=== PATIENT | female | born 1985 | race Caucasian/White ===

== ENCOUNTER → 2019-07-10 14:50 | Outpatient (BNVA) | payer OTHER, SELFPAY | PROVIDERS: Family Provider Physician Assistant Medical; PCP Physician Assistant Medical; Visit Provider Nurse Practitioner Women's Health | DX: O09.292 Supervision of pregnancy with other poor reproductive or obstetric history, second trimester (principal); O16.2 Unspecified maternal hypertension, second trimester; R00.0 Tachycardia, unspecified; O34.211 Maternal care for low transverse scar from previous cesarean delivery; O09.891 Supervision of other high risk pregnancies, first trimester; Z14.1 Cystic fibrosis carrier | CPT/HCPCS: 82950; 84156; 84315 ==

== ENCOUNTER → 2019-07-16 11:38 | Outpatient (BNVA) | payer OTHER, SELFPAY | PROVIDERS: Family Provider Physician Assistant Medical; PCP Physician Assistant Medical; Visit Provider Obstetrics & Gynecology | DX: O99.810 Abnormal glucose complicating pregnancy (principal) | CPT/HCPCS: 82951; 82952 ==

== ENCOUNTER → 2019-07-30 09:54 | Outpatient (BNVA) | payer OTHER, SELFPAY | PROVIDERS: Family Provider Physician Assistant Medical; PCP Physician Assistant Medical; Visit Provider Obstetrics & Gynecology | DX: O16.2 Unspecified maternal hypertension, second trimester (principal); O09.892 Supervision of other high risk pregnancies, second trimester; O34.211 Maternal care for low transverse scar from previous cesarean delivery; Z3A.20 20 weeks gestation of pregnancy | CPT/HCPCS: 76805 ==

== ENCOUNTER → 2019-08-01 09:11 | Outpatient (BNVA) | payer OTHER, SELFPAY | PROVIDERS: Family Provider Physician Assistant Medical; PCP Physician Assistant Medical; Visit Provider Obstetrics & Gynecology | DX: Z01.89 Encounter for other specified special examinations (principal) | CPT/HCPCS: 84315 ==

== ENCOUNTER → 2019-08-27 09:18 | Outpatient (BNVA) | payer OTHER, SELFPAY | PROVIDERS: Family Provider Physician Assistant Medical; PCP Physician Assistant Medical; Visit Provider Obstetrics & Gynecology | DX: Z01.89 Encounter for other specified special examinations (principal) | CPT/HCPCS: 84315 ==

== ENCOUNTER → 2019-09-26 11:00 | Outpatient (BNVA) | payer OTHER, SELFPAY | PROVIDERS: Family Provider Physician Assistant Medical; PCP Physician Assistant Medical; Visit Provider Obstetrics & Gynecology | DX: O09.892 Supervision of other high risk pregnancies, second trimester (principal); Z34.90 Encounter for supervision of normal pregnancy, unspecified, unspecified trimester; O09.292 Supervision of pregnancy with other poor reproductive or obstetric history, second trimester; O34.211 Maternal care for low transverse scar from previous cesarean delivery; Z30.09 Encounter for other general counseling and advice on contraception; Z14.1 Cystic fibrosis carrier; O09.891 Supervision of other high risk pregnancies, first trimester | CPT/HCPCS: 82950; 84315; 85027; 86850 ==

== ENCOUNTER → 2019-10-01 09:55 | Outpatient (BNVA) | payer OTHER, SELFPAY | PROVIDERS: Family Provider Physician Assistant Medical; PCP Physician Assistant Medical; Visit Provider Obstetrics & Gynecology | DX: O99.810 Abnormal glucose complicating pregnancy (principal) | CPT/HCPCS: 82951; 82952 ==

== ENCOUNTER → 2019-10-07 09:26 | Outpatient (BNVA) | payer OTHER, SELFPAY | PROVIDERS: Family Provider Physician Assistant Medical; PCP Physician Assistant Medical; Visit Provider Obstetrics & Gynecology | DX: Z01.89 Encounter for other specified special examinations (principal) | CPT/HCPCS: 84315 ==

== ENCOUNTER → 2019-10-14 10:48 | Outpatient (BNVA) | payer OTHER, SELFPAY | PROVIDERS: Family Provider Physician Assistant Medical; PCP Physician Assistant Medical; Visit Provider Obstetrics & Gynecology | DX: O34.219 Maternal care for unspecified type scar from previous cesarean delivery (principal); O09.893 Supervision of other high risk pregnancies, third trimester; Z14.1 Cystic fibrosis carrier; Z3A.31 31 weeks gestation of pregnancy; O09.892 Supervision of other high risk pregnancies, second trimester; O34.211 Maternal care for low transverse scar from previous cesarean delivery; Z30.09 Encounter for other general counseling and advice on contraception; O99.013 Anemia complicating pregnancy, third trimester | CPT/HCPCS: 84315 ==

== ENCOUNTER → 2019-11-08 10:58 | Outpatient (BNVA) | payer OTHER, SELFPAY | PROVIDERS: Family Provider Physician Assistant Medical; PCP Physician Assistant Medical; Visit Provider Obstetrics & Gynecology | DX: O09.892 Supervision of other high risk pregnancies, second trimester (principal); O24.419 Gestational diabetes mellitus in pregnancy, unspecified control | CPT/HCPCS: 76816; 76819; 84315 ==

== ENCOUNTER → 2019-11-14 08:37 | Outpatient (BNVA) | payer OTHER, SELFPAY | PROVIDERS: Family Provider Physician Assistant Medical; PCP Physician Assistant Medical; Visit Provider Obstetrics & Gynecology | DX: O09.893 Supervision of other high risk pregnancies, third trimester (principal); O24.414 Gestational diabetes mellitus in pregnancy, insulin controlled; O99.013 Anemia complicating pregnancy, third trimester; Z3A.00 Weeks of gestation of pregnancy not specified | CPT/HCPCS: 84315; 85027 ==

== ENCOUNTER → 2019-11-21 14:59 | Outpatient (BNVA) | payer OTHER, SELFPAY | PROVIDERS: Family Provider Physician Assistant Medical; PCP Physician Assistant Medical; Visit Provider Obstetrics & Gynecology | DX: O09.893 Supervision of other high risk pregnancies, third trimester (principal); O24.414 Gestational diabetes mellitus in pregnancy, insulin controlled; Z3A.00 Weeks of gestation of pregnancy not specified | CPT/HCPCS: 84315; 87081 ==

== ENCOUNTER 2019-11-26 10:41 | Outpatient (CLI) | payer OTHER, SELFPAY ==
[2019-11-26 11:30] VITALS: BMI 35.5
[2019-11-26 11:45] VITALS: BP 118/68; PULSE 85; RESP 16; TEMP 36.6
--- NOTE | 2019-11-26 11:55 | US_ITS ---
WS: [id number] US OB BPP wo NST 69294 REASON FOR EXAM: Gestational Diabetes FINDINGS: Cephalic presentation Biophysical profile 01/31. US/US OB BPP wo NST 00218 IMPRESSION: Normal biophysical profile.
--- NOTE | 2019-11-26 12:55 | PM.ACPR ---
Procedure/Consent Procedure Narrative: NONSTRESS TEST: Place of test: [facility] [place]-L&D Indication: 34-year-old 6 para 2-0-3-2 at 37 weeks and 2 days, gestational diabetic on insulin, monitoring Date and time of test: 11/26/2019-12:10 PM Baseline: 130 Variability: Moderate variability Accelerations: Accelerations present Decelerations: No decelerations Tocometry: No contractions INTERPRETATION: NST reactive, BPP 8 out of 8, reassuring status. Continue kick counts
[2019-11-26 12:56] VITALS: BP 130/70; PULSE 86; RESP 16; TEMP 36.6
[2019-11-26 13:00] VITALS: BP 130/70; PULSE 86; RESP 16; TEMP 36.6
== END 2019-11-26 13:00 | disposition home or self-care (01) ==
LOC: RAD 10:55 → OPOB 11:47 → OBGYN 11:48
PROVIDERS: PCP Physician Assistant Medical; Visit Provider Obstetrics & Gynecology
DX: O26.899 Other specified pregnancy related conditions, unspecified trimester (principal); Z3A.00 Weeks of gestation of pregnancy not specified
CPT/HCPCS: 12345; 59025; 76819

== ENCOUNTER 2019-11-28 08:56 | Outpatient (CLI) | payer OTHER, SELFPAY ==
[2019-11-28 09:10] VITALS: BP 137/85; PULSE 122; RESP 17; TEMP 36.7
--- NOTE | 2019-11-28 09:10 | US_ITS ---
WS: [id number] US OB BPP wo NST 70038 REASON FOR EXAM: gestational diabetes FINDINGS: Cervix measured 4.24 cm and was closed. Cephalic presentation heart rate 124 beats for minute Biophysical profile 88 with normal breathing, movement, tone, and amniotic fluid. The fetus is at 37 weeks 4 days gestation with expected date of confinement of 12/15/2019. The placenta is graded as grade 2. US/US OB BPP wo NST 66648 IMPRESSION: Biophysical profile 8/8 37 weeks 4 days gestation due date December 15, 2019
[2019-11-28 09:31] VITALS: BP 121/63; PULSE 96
[2019-11-28 09:43] VITALS: BMI 35.5
[2019-11-28 12:15] VITALS: BP 121/63; PULSE 96
--- NOTE | 2019-11-28 17:11 | PM.ACPR ---
NST (Non-Stress Test) NST : 6 Para: 2,032 Due date: 12/15/19 Gestational age (weeks): 37 Indications: Insulin requiring gestational diabetes in third trimester at 37-4/7 weeks Test: NST Time: 09:10 Length of test in Minutes: 29 Contractions: None Fetus Fetus 1: Baseline FHR BMP:: 135 Variability: Moderate Accelerations: Present Decelerations: None Reacticity: Reactive Interpretation/Plan Interpretation by: Robert Dumont Comments: Reactive NST. Biophysical profile pending.
== END 2019-11-28 12:15 | disposition home or self-care (01) ==
LOC: OPOB 09:04 → OBGYN 09:05
PROVIDERS: PCP Physician Assistant Medical; Visit Provider Obstetrics & Gynecology
DX: O24.419 Gestational diabetes mellitus in pregnancy, unspecified control (principal); Z3A.00 Weeks of gestation of pregnancy not specified
CPT/HCPCS: 12345; 59025; 76819; 84315; 99211

== ENCOUNTER 2019-12-10 05:02 | Inpatient (IN) | payer OTHER, SELFPAY ==
[2019-12-10] VITALS (22 sets, daily range): BP systolic 110–135; BP diastolic 67–88; PULSE 64–101; RESP 12–18; TEMP 36.4–36.9; O2SAT 94–100; BMI 35.7
--- NOTE | 2019-12-10 06:43 | W.PM.OPSUD ---
Surgery/Procedure H&P Update DATE OF PROCEDURE: December 10, 2019 DATE H&P PERFORMED: 12/06/19 H&P UPDATE INFORMATION: I have reviewed H&P completed within last 30 days, I have examined patient prior to procedure, Changes to prior documentation as noted here and H&[place] is in [facility] [place] date indicated CHANGES TO PREVIOUS DOCUMENTATION: Patient has decided not to have the sterilization. PREOP DIAGNOSIS: Prior section - declines PLANNED PROCEDURE: Operation Date: 12/10/19 07:00 Proposed Procedures p Section Repeat With Tubal 33282 04168 Z34.90 Z98.891 Z30.2(Not Applicable) - Robert Dumont MD
[2019-12-10] MEDS: famotidine 20 mg/2 mL INJ IVP (06:45)
[2019-12-10] MEDS: metoclopramide 5 mg/mL SDV 2 mL 10 MG IVP (06:45)
[2019-12-10] MEDS: citric acid-sodium citrate 30 mL UDC PO (06:45)
[2019-12-10] MEDS: lactated ringers 1,000 ML 999 ML IV (06:54)
--- NOTE | 2019-12-10 06:58 | P.ANESASSM_ITS ---
Pre-Anesthetic Assessment Pre-Anesthetic Assessment: Height/Weight: Height 1.52 m Weight 83.007 kg Temp Pulse BP 98.3 F 101 H 135/88 12/10/19 05:59 12/10/19 05:27 12/10/19 05:27 Preop Diagnosis: Prior section - declines Proposed Procedure: Operation Date: 12/10/19 07:00 Proposed Procedures p Section Repeat With Tubal 79342 31205 Z34.90 Z98.891 Z30.2(Not Applicable) - Robert Dumont MD Familial anesthetic complications: none Was Beta Nayla taken within 24 hours: N/A Last intake: Intake Last Liquid Date 12/10/19 Last Liquid Time 00:00 Last Solid Date 12/10/19 Last Solid Time 00:00 Last Intake: 22:00 Social: Social History: No alcohol and No tobacco Exam: Pre-Anes Outpt Exam: alert, oriented x 3, clear to auscultation bilaterally and regular rate & rhythm Airway: Submandibular: WNL Cervical ROM: WNL MP: 1 Dentition: Full Pulmonary: Pulmonary: None reported CV/HEM: CV/HEM: Arrythmia (flutter') : : None reported Hepatic: Hepatic: None reported GI: GI: GERD Metabolic: Metabolic: DM (with avg 130-160) Musc/skel: Musc/skel: None reported Neuropsych: Neuropsych: None reported Anesthetic Plan: ASA status: 2 Anesthesia: Anesthesia Evaluation, Eval. 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 No prior evaluation. Sometimes symptomatic with it. Can last up to an hour. No prior medication treatment. Surgical History History of dilation and curettage (07/15/10) D&C with suction for treatment of miscarriage. Performed by Dr. Dumont at [facility] Previous section (05/27/11) Primary LTCS. Diagnosis: CPD with a large fetus. Performed by Dr. Yoder and Dr. Dumont at [facility] in [place], [place]. Confirmed LTCS with 2 layer closure. Previous section (10/25/13) Repeat LTCS. Performed by Dr. Dumont at [facility] in [place], [place]. Confirmed LTCS with 2 layer closure. Family History Family/Other Ovarian cancer maternal great aunt Patient denies medical problems Denies family history of: hypertension, stroke, hypercholesterolemia, thryoid problems, breast cancer, uterine cancer,or colon cancer. Grandfather Diabetes maternal Heart disease maternal Social History Smoking and tobacco status: never smoked Alcohol intake: former Former alcohol use details: Socially--has stop since finding out she was Other details last substance use: No substance abuse Additional social history: Well balanced diet Female Reproductive History: : 6 Data Anesthesia Cardiac Studies: No Data to Display
[2019-12-10 07:09] LABS: Glucose Point of Care 94 mg/dL (70-110)
[2019-12-10 07:15] LABS: Basophils % 0.4 %; Eosinophils # 0.1 10^3/uL (0.0-0.8); Eosinophils % 1.3 %; Hematocrit 34.4 % (37.0-47.0); Hemoglobin 11.6 g/dL (11.5-15.3); Lymphocytes # 1.6 10^3/uL (0.8-4.8); Lymphocytes % 14.8 %; Mean Corpuscular HGB Conc 33.7 g/dL (30.0-36.0); Mean Corpuscular Volume 94.8 fL (81-99); Mean Platelet Volume 10.6 fL (7.4-10.4); Monocytes # 0.8 10^3/uL (0.2-0.9); Neutrophils # 8.2 10^3/uL (1.8-7.7); Neutrophils % 75.5 %; Nucleated Red Blood Cells % 0 %; Platelet Count 258 10^3/cmm (130-400); Red Blood Count 3.63 10^6/uL (4.1-5.3); Red Cell Distribution Width 13.8 % (12.1-15.1); White Blood Count 10.8 10^3/uL (4.0-10.0)
--- NOTE | 2019-12-10 08:45 | PC.NURSE ---
Pt transported to room 201 via bed for recovery.
--- NOTE | 2019-12-10 08:47 | PM.OP ---
Operative Report Date of procedure: December 10, 2019 Pre-op Diagnosis: 1. Previous section, declines 2. Insulin requiring gestational diabetes in third trimester 3. Rh-negative status in in third trimester 4. Term at 39-2/7 weeks gestation Post-op Diagnosis: 1. Previous section, declines 2. Insulin requiring gestational diabetes - delivered 3. Rh-negative status in - delivered 4. Term at 39-2/7 weeks gestation 5. Viable male . Procedure Done: Repeat low transverse section Surgeon: Robert Dumont Regional Geodetic Advisor: None Anesthesia: None (Spinal) Estimated blood loss (mL): 800 IV fluids (mL): 1,200 Complications: None Findings: 1. Viable male , cephalic presentation, weighing 8 lbs 6 oz (3785 g) with a length of 20 inches and Apgars of 9 at 1 minute and 10 at 5 minutes. 2. Normal-appearing uterus, tubes, and ovaries. Condition: stable Brief History: Patient is a 34-year-old white female 6, para 2-0-3-2 with an LMP of 03/10/2019 and an EDC of 12/15/2019 based on LMP and consistent with a 9-week ultrasound, which placed her at 39-2/7 weeks gestation today. Her had been complicated by 2 prior sections, insulin requiring gestational diabetes, and anemia in . Because of 2 prior sections, patient wanted to proceed with a repeat section. She had also stated during the that she might want to have her tubes tied. This is been discussed on several occasions and this morning she has decided not to have the sterilization performed. Risks of surgery were reviewed with her. Questions were answered. She is being prepared for repeat section. Procedure: Patient was taken to the operating room where spinal anesthesia was obtained. She was prepped and draped in the usual sterile fashion in a dorsal supine position with a leftward tilt. Floyd catheter and sequential compression boots had been placed prior to starting the case. A Pfannenstiel skin incision was made with a knife through the patient's prior scar and carried down to the underlying fascia with the knife. Fascia was incised in the midline with the knife and extended laterally with Ferreira scissors. Superior aspect of the fascia was grasped with Lise clamps, elevated, and sharply and bluntly dissected. The inferior aspect of the fascia was grasped with Lise clamps, elevated, and sharply and bluntly dissected. The rectus muscles were in the midline. Peritoneum was sharply entered. Peritoneal incision was extended both superiorly and inferiorly with good visualization of the bladder. Bladder blade was inserted. The vesicouterine peritoneum was tented up and sharply entered. It was extended laterally and the bladder flap was created digitally. Bladder blade was reinserted. A transverse incision was made with the knife in the lower uterine segment. Clear fluid was obtained upon entry into the uterine cavity. The infant's head was delivered and no nuchal cords were noted. The rest of the delivered atraumatically. Nose and mouth were suctioned with bulb suction. Cord was clamped and cut and the was handed off to Dr. Grey and the waiting nurses. Cord blood was obtained. Placenta was delivered via uterine massage. Patient received 20 units of Pitocin in the IV fluids. The uterus was exteriorized and cleared of clots and debris. The uterine incision was closed in a running locking fashion using 0 Vicryl suture. The incision was imbricated using 0 Vicryl suture in a horizontal mattress fashion. The incision was inspected and noted to be hemostatic. Posterior cul-de-sac was thoroughly irrigated and cleared of clots and blood. The uterus was returned to the abdomen. The uterine incision was irrigated and noted to be hemostatic. The gutters were cleared of clots and blood. The rectus muscles and peritoneum were reapproximated in the midline using interrupted stitches of 2-0 Vicryl suture. The muscle layer was irrigated and noted to be hemostatic. The fascia was reapproximated using 0 Vicryl suture in a running fashion. The subcutaneous layer was irrigated and brought to hemostasis using electrocautery. It was reapproximated using 3-0 plain suture in an interrupted fashion. Skin was reapproximated using 4-0 Vicryl suture in a subcuticular fashion. Steri-Strips were applied. Patient tolerated the procedures well. Sponge, needle, and instrument counts were correct. DRAINS: Floyd catheter POSTOPERATIVE STATUS: The patient was left to recover in satisfactory condition
[2019-12-10] MEDS: dextrose 5%-lactated ringers 1,000 ML 125 ML IV (12:11)
[2019-12-10] MEDS: ketorolac 30 mg/mL INJ IVP (14:46)
--- NOTE | 2019-12-10 18:38 | PC.NURSE ---
Urinary indwelling catheter removed on 12/10/2019 at 18:15. Balloon withdrawn amount was 9mL of sterile saline. Urine was drained before withdrawing and was equal t 250mL of clear yellow urine without odor. Withdrawn urine was also charted in the daily intake and output record. Cath intact. Patient tolerated the procedure well.......Alesha Thorpe RN
[2019-12-10 20:42] LABS: Hematocrit 31.5 % (37.0-47.0); Hemoglobin 10.6 g/dL (11.5-15.3); Mean Corpuscular HGB Conc 33.7 g/dL (30.0-36.0); Mean Corpuscular Hemoglobin 31.9 pg (28.0-34.0); Mean Corpuscular Volume 94.9 fL (81-99); Platelet Count 233 10^3/cmm (130-400); Red Blood Count 3.32 10^6/uL (4.1-5.3); Red Cell Distribution Width 13.5 % (12.1-15.1); White Blood Count 11.1 10^3/uL (4.0-10.0)
[2019-12-11 02:50] VITALS: BP 108/67; PULSE 68; RESP 17
[2019-12-11] MEDS: HYDROcodone-acetaminophen 5-325 mg Tablet PO (06:20)
[2019-12-11] MEDS: docusate sodium 100 mg Capsule PO (08:15)
[2019-12-11] MEDS: prenatal vitamin Capsule 1 CAP PO (08:15)
[2019-12-11 09:18] VITALS: BP 125/79; PULSE 86; RESP 17; TEMP 36.7
--- NOTE | 2019-12-11 14:05 | PM.DCS ---
Discharge Providers Date of Admission: 12/10/19 05:02 Date of Discharge: December 11, 2019 Attending Provider at Admission: Robert Dumont MD Attending Provider at Discharge: Robert Dumont MD Primary Care Provider: Harrison Blue Diagnoses at Discharge Discharge Diagnosis (1) Maternal care due to low transverse uterine scar from previous delivery: Status: Acute (2) Gestational diabetes mellitus, delivered: Status: Acute Reason for Visit Reason for Visit: Intrauterine ,Previous section, Hospital Course Hospital Course: Patient is a 34-year-old white female 6, para 2-0-3-2 with an LMP of 03/10/2019 and an EDC of 12/15/2019 based on LMP and consistent with a 9-week ultrasound, which placed her at 39-2/7 weeks gestation at time of admission. Her been complicated by 2 prior sections, insulin requiring gestational diabetes, and anemia in . Because of 2 prior 's, she was planning on a repeat section. She had also been discussing options of sterilization at the time of at but on the morning of surgery has decided not to have the sterilization. Risks of repeat section were reviewed with her the morning of surgery. Questions were answered. She was prepared for surgery. She had a repeat low transverse section performed with the delivery of a viable male weighing 8 pounds 6 ounces (3785 g) with a length of 20 inches and Apgars of 9 at 1 minute and 10 at 5 minutes. She received Duramorph in her spinal anesthesia for pain management after surgery. Mother and did well following surgery. POSTOPERATIVE DAY 1 That morning, patient was without complaints. She was tolerating a regular diet without nausea or vomiting. She was ambulating without lightheadedness or dizziness. She denied any shortness of breath or chest pains. Her pain was well controlled with the Duramorph. She was urinating without difficulty. She was passing flatus. Activities were increased through the day. By the late afternoon, patient was requesting to go home. She reported at that time that her pain was well controlled on the pills. She denied any complaints at that time. Physical Exam: See below Plan: Discharge to home. Discharge instructions discussed with patient. Patient to follow-up in the office at 2 and 6 weeks following surgery. Patient also instructed to have a follow-up diabetes testing approximately 6 weeks . She was instructed that she did not need to do any further sugar checks at home and to stop her insulin. Physical Exam Const: COMMON NORMALS: no acute distress, average body habitus, alert and well nourished GENERAL APPEARANCE: well developed ORIENTATION/CONSCIOUSNESS: Yes oriented to person, Yes oriented to place and Yes oriented to time Resp: COMMON NORMALS: normal respiratory effort and clear to auscultation bilaterally AUSCULTATION: clear to auscultation bilaterally Cardio: COMMON NORMALS: regular rate, regular rhythm, No gallops present (Cardio), No murmurs present (Cardio) and No rub (Cardio) RATE: regular rate RHYTHM: regular rhythm GI: COMMON NORMALS: Soft to palpation, No hepatosplenomegaly present and no masses (except for firm uterus below umbilicus) AUSCULTATION: Yes normoactive bowel sounds PALPATION: Yes Soft to palpation, Yes Tenderness to palpation present (GI) (lower abdomen), Yes No hepatosplenomegaly present and No Hernia present : EXTERNAL FEMALE EXAM: No Hernia present Extremity: COMMON NORMALS: no calf tenderness GENERAL: Yes edema (trace to 1+ lower extremity edema) Neuro: SENSORIUM/ORIENTATION: Yes alert, Yes oriented to person, Yes oriented to place and Yes oriented to time Psych: COMMON NORMALS: normal affect MOOD & AFFECT: Yes euthymic mood Urinary Catheter Management^: Floyd: Cath Placed During This Visit: yes Reason for Continuing Indwelling Catheter: Perioperative Use in Selected Surgeries Urinary Catheter Date of Insertion: 12/10/19 Urinary Catheter Time of Insertion: 07:30 Discharge Data Data Completed and Pending: Labs from last 24 hours 12/10/19 12/10/19 12/10/19 20:28 20:28 05:40 WBC 11.1 H RBC 3.32 L Hgb 10.6 L Hct 31.5 L MCV 94.9 MCH 31.9 MCHC 33.7 RDW 13.5 Plt Count 233 MPV 10.0 Blood Type A Negative Rho(D) Type Negative Antibody Screen Positive Antibody Identific ation Anti-D Screen Negative Vitals: Last Vital Signs Temp 98.1 F 12/11/19 09:18 Pulse 86 12/11/19 09:18 Resp 17 12/11/19 09:18 BP 125/79 12/11/19 09:18 Pulse Ox 94 12/10/19 21:59 Discharge Plan Discharge Patient Disposition: Home, Self-Care Condition: Stable Prescriptions: New hydrocodone-acetaminophen 5-325 mg Tablet 1 - 2 tab PO Q6H PRN (Reason: Moderate To Severe Pain) Qty: 30 RF: 0 Continued prenat.vits,ha,euo-diiw-tsopc Tablet 1 tab PO DAILY RF: 0 Zyrtec 10 mg capsule 10 mg PO DAILY RF: 0 magnesium oxide 400 mg PO DAILY RF: 0 Discontinued ferrous sulfate 140 mg (45 mg iron) tablet extended release 130 mg PO DAILY RF: 0 Humulin N NPH Insulin KwikPen 100 unit/mL (3 mL) insulin pen See Rx Instructions SUBCUT .COMPLEX Qty: 3 RF: 0 Discharge Orders: Discharge Order (Routine); Ordered 12/11/19 Ordered By: Robert Dumont Referrals: Robert Dumont MD [Physician] - 12/26/19 8:45 am (* Your 2 week incision check appointment is on 12/26/2019 at 8:45am. * Your 6 week follow up appointment is on 01/24/2020 at 7:45 am with 2 hour fasting diabetes test) Discharge Diet: Regular Discharge Activity: Limit activity as instructed Patient Instructions: Hydrocodone/Acetaminophen (By mouth), OB WH[facility], OB Discharge Report, OB Food/Drug Interaction Guide, OB Home Care, OB Proud Parent Packet Activity Restrictions/Additional Instructions: Use tuaf-xxx-hftnioc ibuprofen 200 mg, 3 tablets four times a day or 4 tablets three times a day, as needed for pain Discharge Date/Time: 12/11/19 14:40 Discharge Attestations Time Spent in Discharge Care*: less than 30 min Quality Metrics Clinical Quality Measures During this hospital stay, did patient experience: None Coding Level of Care Code Acute Biomedical Engineering Director for Chg Fwd Exam Detailed Diagnoses Maternal care due to low transverse uterine scar from previous delivery O34.211 Gestational diabetes mellitus, delivered O24.429
[2019-12-11 14:10] VITALS: BP 123/81; PULSE 92; RESP 17
[2019-12-11 14:15] VITALS: BP 123/81; PULSE 92; RESP 17
== END 2019-12-11 14:40 | disposition home or self-care (01) | DRG 788 ==
PROVIDERS: Admitting Provider Obstetrics & Gynecology; PCP Physician Assistant Medical; Visit Provider Obstetrics & Gynecology
PROC: 10D00Z1 Extraction of Products of Conception, Low, Open Approach (ICD-10-PCS; CPT 59514; principal; 2019-12-10 07:00)
DX: O24.424 Gestational diabetes mellitus in childbirth, insulin controlled (principal); O34.211 Maternal care for low transverse scar from previous cesarean delivery; N85.8 Other specified noninflammatory disorders of uterus; Z3A.39 39 weeks gestation of pregnancy; Z37.0 Single live birth; O99.02 Anemia complicating childbirth; D64.9 Anemia, unspecified
CPT/HCPCS: 12345; 36415; 36416; 51702; 59025; 59409; 80500; 82962; 85025; 85027; 85460; 86850; 86870; 86900; 90384; 96372; 96375; J1885; J2274; J2370; J2405; J2590; J2765; J3490; J7030

== ENCOUNTER → 2020-01-24 08:15 | Outpatient (BNVA) | payer OTHER, SELFPAY | PROVIDERS: PCP Physician Assistant Medical; Visit Provider Obstetrics & Gynecology | DX: Z39.2 Encounter for routine postpartum follow-up (principal); Z48.816 Encounter for surgical aftercare following surgery on the genitourinary system; O24.429 Gestational diabetes mellitus in childbirth, unspecified control | CPT/HCPCS: 82947 ==

== ENCOUNTER → 2023-11-22 16:03 | Outpatient (BNVA) | payer OTHER, SELFPAY | PROVIDERS: PCP Physician Assistant Medical; Visit Provider Nurse Practitioner Women's Health | DX: Z12.4 Encounter for screening for malignant neoplasm of cervix (principal); Z01.419 Encounter for gynecological examination (general) (routine) without abnormal findings | CPT/HCPCS: 87624 ==